=== PATIENT | male | born 1955 | race Hispanic/Latino ===

== ENCOUNTER 2021-12-06 18:56 | Emergency (ER) | payer MEDICARE ==
[~2021-12-06] VITALS: Ht 167.6 cm; Wt 90.7 kg
[2021-12-06 19:55] VITALS: BP 106/77
[2021-12-06] MEDS ORDERED: OCTYL 2-CYANOACRYLATE 1 EACH TP ONE ×2 (20:15→20:20)
== END 2021-12-06 20:35 | disposition home or self-care (01) ==
LOC: EDH 18:56
DX: S01.01XA Laceration without foreign body of scalp, initial encounter (principal); E03.9 Hypothyroidism, unspecified; E78.00 Pure hypercholesterolemia, unspecified; W18.39XA Other fall on same level, initial encounter; Y93.89 Activity, other specified; Y92.89 Other specified places as the place of occurrence of the external cause; Y99.8 Other external cause status
CPT/HCPCS: 12002; 70450; 72125